=== PATIENT | female | born 1990 | race African-American/Black ===

== ENCOUNTER 2024-02-11 17:37 | Emergency (ER) | payer OTHER, SELFPAY ==
[2024-02-11] MEDS ORDERED: Mag-Al Plus 1200/1200/120 MG (30 mL) UDCUP ONE (18:07)
[2024-02-11] MEDS ORDERED: Lidocaine 2% Viscous 100 ML BOTTLE ONE (18:08)
== END 2024-02-11 19:13 | disposition home or self-care (01) ==
LOC: NAV ERS 17:37
DX: K21.9 Gastro-esophageal reflux disease without esophagitis (principal); I10 Essential (primary) hypertension; Z79.899 Other long term (current) drug therapy
CPT/HCPCS: 99283